=== PATIENT | male | born 1970 | race Caucasian/White ===

== ENCOUNTER 2020-01-11 05:45 | Inpatient (IN) ==
[2020-01-11] MEDS ORDERED: methylPREDNISolone SOD SUC 125 MG/2 ML VIAL IV STA (06:09)
[2020-01-11 06:18] LABS: Basophils % 0.4 % (0.0-0.8); Eosinophils # 0.6 10*3/uL (0.0-0.87); Eosinophils % 6.5 % (0.00-10.9); Hematocrit 48.5 VOL% (42.0-52.0); Hemoglobin 16.7 GM/DL (14.0-18.0); Immature Granulocytes % 0.4 %; Immature Granulocytes Absolute 0.04 #; Lymphocytes # 0.9 10*3/uL (1.4-4.0); Lymphocytes % 9.8 % (21.2-54.2); Mean Corpuscular HGB Conc 34.4 GM/DL (32-36); Mean Corpuscular Volume 92.4 FL (87-102); Monocytes % 6.6 % (1.7-12.7); Neutrophils % 76.3 % (38.7-73.9); Platelet Count 177 T/CUMM (130-400); Red Blood Count 5.25 MC/CUMM (3.8-5.5); Red Cell Distribution Width 12.3 % (9.3-17.3); White Blood Count 9.5 T/CUMM (4-12)
[2020-01-11] MEDS ORDERED: ALBUTEROL 2.5 MG/3 ML NEB RESP TX ONE (06:19)
[2020-01-11] MEDS ORDERED: ALBUTEROL NEB SOLN 5 MG/ML 20 ML/BOTTLE CONT NEB SCH (06:30)
[2020-01-11] MEDS ORDERED: MAGNESIUM SULF RIDER 2 GM in PREMIX 1 EACH IV ONE (08:15)
[2020-01-11] MEDS ORDERED: ONDANSETRON 4 MG/2 ML VIAL IV PRN (08:15)
[2020-01-11 09:00] LABS: Allen Test Positive
[2020-01-11] MEDS ORDERED: PANTOPRAZOLE 40 MG TABLET PO SCH (09:00)
[2020-01-11 09:01] LABS: ABG Base Excess -1.7 MMOL/L (-2.5-2.5); ABG Oxygen Saturation 96.3 % (95-100); ABG PCO2 33.5 MM HG (35-48); ABG PH 7.421 (7.35-7.45); ABG PO2 79.9 MM HG (80-95); ABG TCO2 18.1 MMOL/L (23-27)
[2020-01-11] MEDS: BUDESONIDE 0.5 MG/2 ML NEB RESP TX SCH ×2 (10:21→18:58)
[2020-01-11] MEDS ORDERED: hydrALAZINE 20 MG/1 ML VIAL IV PRN (10:44)
[2020-01-11] MEDS ORDERED: LEVALBUTEROL 0.63 MG/3 ML NEB RESP TX SCH (11:00)
[2020-01-11] MEDS: methylPREDNISolone SOD SUC 125 MG/2 ML VIAL IV SCH ×3 (11:04→23:09)
[2020-01-11] MEDS: cefTRIAXone 1,000 MG in SYRINGE 1 EACH IV SCH (12:16)
[2020-01-11] MEDS: DILTIAZEM 60 MG TABLET PO SCH ×3 (12:17→20:32)
[2020-01-11] MEDS: PANTOPRAZOLE 40 MG TABLET PO SCH (12:17)
[2020-01-11] MEDS: ENOXAPARIN 40 MG/0.4 ML SYRINGE SUBCUT SCH ×2 (12:18→14:39)
[2020-01-11] MEDS: ALBUTEROL 1.25 MG/3 ML NEB RESP TX SCH ×3 (15:13→23:50)
[2020-01-11] MEDS ORDERED: ZALEPLON 5 MG CAPSULE PO PRN (15:56)
[2020-01-11] MEDS: MONTELUKAST 10 MG TABLET PO SCH (20:33)
[2020-01-12] MEDS: ALBUTEROL 1.25 MG/3 ML NEB RESP TX SCH ×5 (03:05→20:25)
[2020-01-12 05:26] LABS: Basophils % 0.1 % (0.0-0.8); Hematocrit 45.5 VOL% (42.0-52.0); Hemoglobin 15.6 GM/DL (14.0-18.0); Immature Granulocytes Absolute 0.12 #; Lymphocytes # 0.5 10*3/uL (1.4-4.0); Lymphocytes % 4.1 % (21.2-54.2); Mean Corpuscular HGB Conc 34.3 GM/DL (32-36); Mean Corpuscular Volume 92.9 FL (87-102); Mean Platelet Volume 10.4 FL (9.6-12.0); Monocytes % 2.6 % (1.7-12.7); Neutrophils % 92.2 % (38.7-73.9); Platelet Count 203 T/CUMM (130-400); Red Cell Distribution Width 12.3 % (9.3-17.3); White Blood Count 11.6 T/CUMM (4-12)
[2020-01-12 06:01] LABS: Albumin 3.9 G/DL (3.4-5.0); Bilirubin,Total 0.9 MG/DL (0.2-1.0); Calcium 9.1 MG/DL (8.5-10.1); Osmolality,Calculated 283.5 MOS/KG (273-304); Total Protein 7.2 G/DL (6.4-8.3)
[2020-01-12] MEDS: methylPREDNISolone SOD SUC 125 MG/2 ML VIAL IV SCH (06:13)
[2020-01-12] MEDS: BUDESONIDE 0.5 MG/2 ML NEB RESP TX SCH ×2 (06:37→20:25)
[2020-01-12 06:41] LABS: Lymphocytes 2 % (20-55); Platelet Estimate Normal; Polychromasia Slight; Segmented Neutrophils 94 % (50-85); Total Cells Counted 100
[2020-01-12] MEDS: DILTIAZEM 60 MG TABLET PO SCH ×4 (08:40→21:07)
[2020-01-12] MEDS: PANTOPRAZOLE 40 MG TABLET PO SCH (08:42)
[2020-01-12] MEDS: LOSARTAN 50 MG TABLET PO SCH (08:42)
[2020-01-12] MEDS: ENOXAPARIN 40 MG/0.4 ML SYRINGE SUBCUT SCH (08:43)
[2020-01-12 08:54] LABS: ABG Base Excess 1.2 MMOL/L (-2.5-2.5); ABG HCO3 25.5 MMOL/L (20-26); ABG Oxygen Saturation 99.1 % (95-100); ABG PCO2 35.3 MM HG (35-48); ABG PH 7.452 (7.35-7.45); ABG TCO2 20.5 MMOL/L (23-27)
[2020-01-12] MEDS: methylPREDNISolone SOD SUC 40 MG/1 ML VIAL IV SCH ×4 (11:23→21:07)
[2020-01-12] MEDS: cefTRIAXone 1,000 MG in SYRINGE 1 EACH IV SCH (11:23)
[2020-01-12] MEDS ORDERED: traZODone 50 MG TABLET PO PRN (20:30)
[2020-01-12] MEDS: MONTELUKAST 10 MG TABLET PO SCH (21:06)
[2020-01-13] MEDS: ALBUTEROL 1.25 MG/3 ML NEB RESP TX SCH ×5 (00:10→20:03)
[2020-01-13] MEDS: methylPREDNISolone SOD SUC 40 MG/1 ML VIAL IV SCH ×4 (02:19→22:22)
[2020-01-13 05:47] LABS: Basophils % 0.1 % (0.0-0.8); Hematocrit 45.6 VOL% (42.0-52.0); Hemoglobin 15.1 GM/DL (14.0-18.0); Immature Granulocytes % 1.7 %; Immature Granulocytes Absolute 0.22 #; Lymphocytes # 0.5 10*3/uL (1.4-4.0); Lymphocytes % 3.9 % (21.2-54.2); Mean Corpuscular HGB Conc 33.1 GM/DL (32-36); Mean Corpuscular Volume 94.6 FL (87-102); Mean Platelet Volume 10.2 FL (9.6-12.0); Monocytes % 2.5 % (1.7-12.7); Neutrophils % 91.8 % (38.7-73.9); Platelet Count 204 T/CUMM (130-400); Red Blood Count 4.82 MC/CUMM (3.8-5.5); Red Cell Distribution Width 12.3 % (9.3-17.3); White Blood Count 13.3 T/CUMM (4-12)
[2020-01-13 06:01] LABS: Calcium 9.1 MG/DL (8.5-10.1); Osmolality,Calculated 289.4 MOS/KG (273-304)
[2020-01-13 06:30] LABS: Hypochromasia 1+; Lymphocytes 3 % (20-55); Microcytosis Slight; Platelet Estimate Normal; Segmented Neutrophils 93 % (50-85); Total Cells Counted 100
[2020-01-13] MEDS: BUDESONIDE 0.5 MG/2 ML NEB RESP TX SCH (07:20)
[2020-01-13] MEDS: LOSARTAN 50 MG TABLET PO SCH (09:11)
[2020-01-13] MEDS: DILTIAZEM 60 MG TABLET PO SCH ×4 (09:11→22:22)
[2020-01-13] MEDS: PANTOPRAZOLE 40 MG TABLET PO SCH (09:12)
[2020-01-13] MEDS: ENOXAPARIN 40 MG/0.4 ML SYRINGE SUBCUT SCH (09:12)
[2020-01-13] MEDS ORDERED: BISACODYL 5 MG TABLET PO ONE (12:00)
[2020-01-13] MEDS: BUDESONIDE/FORMOTEROL 160-4.5 INHALER 6 GM INH SCH ×2 (12:43→22:23)
[2020-01-13] MEDS: cefTRIAXone 1,000 MG in SYRINGE 1 EACH IV SCH (12:44)
[2020-01-13] MEDS: POLYETHYLENE GLYCOL POWDER 17 GM PACK PO SCH (12:45)
[2020-01-13] MEDS ORDERED: ZALEPLON 5 MG CAPSULE PO ONE (21:00)
[2020-01-13] MEDS: MONTELUKAST 10 MG TABLET PO SCH (22:23)
[2020-01-14] MEDS: ALBUTEROL 1.25 MG/3 ML NEB RESP TX SCH ×2 (01:57→07:45)
[2020-01-14] MEDS: methylPREDNISolone SOD SUC 40 MG/1 ML VIAL IV SCH ×2 (04:19→08:49)
[2020-01-14 05:57] LABS: Basophils % 0.1 % (0.0-0.8); Hematocrit 45.6 VOL% (42.0-52.0); Hemoglobin 15.3 GM/DL (14.0-18.0); Immature Granulocytes % 1.3 %; Immature Granulocytes Absolute 0.15 #; Lymphocytes # 0.4 10*3/uL (1.4-4.0); Lymphocytes % 3.8 % (21.2-54.2); Mean Corpuscular HGB Conc 33.6 GM/DL (32-36); Mean Corpuscular Volume 93.1 FL (87-102); Mean Platelet Volume 9.8 FL (9.6-12.0); Monocytes % 2.5 % (1.7-12.7); Neutrophils % 92.3 % (38.7-73.9); Platelet Count 199 T/CUMM (130-400); Red Cell Distribution Width 12.1 % (9.3-17.3); White Blood Count 11.5 T/CUMM (4-12)
[2020-01-14 06:15] LABS: Calcium 9.1 MG/DL (8.5-10.1); Osmolality,Calculated 284.8 MOS/KG (273-304)
[2020-01-14 06:29] LABS: Lymphocytes 2 % (20-55); Segmented Neutrophils 96 % (50-85); Total Cells Counted 100
[2020-01-14 06:30] LABS: Hypochromasia Slight; Microcytosis Slight; Platelet Estimate Adequate
[2020-01-14 07:41] VITALS: BP 145/80
[2020-01-14] MEDS: DILTIAZEM 60 MG TABLET PO SCH (08:30)
[2020-01-14] MEDS: ENOXAPARIN 40 MG/0.4 ML SYRINGE SUBCUT SCH (08:31)
[2020-01-14] MEDS: POLYETHYLENE GLYCOL POWDER 17 GM PACK PO SCH (08:31)
[2020-01-14] MEDS: PANTOPRAZOLE 40 MG TABLET PO SCH (08:31)
[2020-01-14] MEDS: LOSARTAN 50 MG TABLET PO SCH (08:31)
[2020-01-14] MEDS: BUDESONIDE/FORMOTEROL 160-4.5 INHALER 6 GM INH SCH (08:31)
== END 2020-01-14 09:34 | disposition home or self-care (01) | DRG 203 ==
LOC: N.ED 05:45 → SUATTDRO 08:14 → N.EDINP 08:14 → N.5E 10:06
PROVIDERS: ADMIT Internal Medicine; ATTEND Internal Medicine